=== PATIENT | male | born 1970 | race Caucasian/White ===

== ENCOUNTER 2021-07-16 09:00 | Outpatient (CLI) | payer OTHER | END 2021-07-16 09:15 | disposition home or self-care (01) | LOC: PPH VACUNA 09:00 | PROVIDERS: ATTEND Emergency Medicine Pediatric Emergency Medicine | DX: Z23 Encounter for immunization (principal) ==

== ENCOUNTER → 2025-02-05 | Emergency (ER) | payer OTHER ==
[~2025-02-05] VITALS: Ht 167.6 cm; Wt 74.8 kg
[~2025-02-05] MED LIST: DICLOFENAC POTA50 MG PO; GABAPENTIN300 M2 PO; KETOROLAC TROMETHAMINE 30 MG VIAL IM STA; LOSARTAN POTAS100 MG PO; ORPHENADRINE CITRATE 30 MG/ML AMPUL IM STA; ZANAFLEX4 M1 PO
[2025-02-05 19:01] VITALS: BP 142/88; O2SAT 96
== END | disposition home or self-care (01) ==
LOC: ER 18:27
DX: M54.16 Radiculopathy, lumbar region (principal); M54.50 Low back pain, unspecified